=== PATIENT | male | born 1945 | race Hispanic/Latino ===

== ENCOUNTER 2018-11-27 07:59 | Emergency (ER) | payer MEDICARE ==
[~2018-11-27] VITALS: Ht 172.7 cm; Wt 93.6 kg
[2018-11-27] MEDS ORDERED: CLONIDINE HCL0.1 MG PO (08:35)
[2018-11-27] MEDS ORDERED: CRESTOR10 MG (08:35)
[2018-11-27] MEDS ORDERED: NIFEDIPINE10 MG PO (08:35)
[2018-11-27] MEDS ORDERED: LOSARTAN-HCTZ1 EAC1 (08:35)
[2018-11-27] MEDS ORDERED: NIFEDIPINE ER30 M1 (08:35)
[2018-11-27] MEDS ORDERED: GLIMEPIRIDE2 MG PO (08:35)
[2018-11-27] MEDS ORDERED: SODIUM CHLORIDE 0.9% 1000ML 1,000 ML ONE (08:45)
[2018-11-27] MEDS ORDERED: SODIUM CHLORIDE 0.9% 1000ML 1,000 ML IV STA (09:09)
--- NOTE | 2018-11-27 09:34 | Diagnostic Imaging Report ---
EXAM: CT Abdomen and Pelvis without contrast. INDICATION: Right lower quadrant pain. COMPARISON: None. TECHNIQUE: Abdomen and pelvis were scanned utilizing a multidetector helical scanner from the lung base to the pubic symphysis without administration of IV contrast. Coronal and sagittal reformations were obtained. Lack of IV contrast limits evaluation for visceral and vascular structures. COMPLICATIONS: None RADIATION DOSE: Total DLP: 824.3 mGy*cm Dose modulation, iterative reconstruction, and/or weight based adjustment of the mA/kV was utilized to reduce the radiation dose to as low as reasonably achievable. FINDINGS: LINES and TUBES: None. LOWER THORAX: There is calcification of the coronary arteries, consistent with atherosclerotic disease. Patchy dependent atelectasis. HEPATOBILIARY: No evidence of focal mass. No biliary ductal dilation. Calcified hepatic granuloma. GALLBLADDER: Cholelithiasis without CT evidence of cholecystitis. SPLEEN: No splenomegaly. PANCREAS: No focal masses or ductal dilatation. ADRENALS: No adrenal nodules KIDNEYS/URETERS: Mild right pelviectasis without alfonso hydronephrosis. Mild right perinephric stranding. Bilateral simple renal cysts. GI TRACT: No evidence of wall thickening or distension. Appendix is normal. PELVIC ORGANS/BLADDER: There is a 2 mm stone within the right posterior bladder near the UVJ. There is a 5 mm calcification in the anterior bladder. Prostate is enlarged, measuring up to 5.1 cm. LYMPH NODES: No lymphadenopathy. VESSELS: There are scattered atherosclerotic calcifications in the aorta and branch vessels. PERITONEUM / RETROPERITONEUM: No free air or fluid. BONES AND SOFT TISSUES: No acute osseous abnormality. No suspicious lytic or blastic lesions. Degenerative changes of the lumbar spine. CONCLUSION: Mild right perinephric stranding with 2 mm right bladder stone, consistent with recent passage from the right distal ureter. Normal appendix. Signed by: Dr. Lisa Bowser MD on 11/27/2018 9:31 AM
--- NOTE | 2018-11-27 09:59 | NUR ---
Pt given a urinal and strainer to be used at home for kidney stones. Pt verbalized understanding of items and will take stone to doctor for evaluation if he obtains one.
[2018-11-27] MEDS ORDERED: FLOMAX0.4 MG PO (10:02)
[2018-11-27] MEDS ORDERED: CEPHALEXIN500 MG PO (10:03)
[2018-11-27] MEDS ORDERED: ONDANSETRON ODT8 MG PO (10:04)
--- NOTE | 2018-11-27 10:05 | NUR ---
Pt BP is down and pt will go home and take his BP medication as he did not take them this morning before coming here.
[2018-11-27 10:07] VITALS: BP 175/97
== END 2018-11-27 10:20 | disposition home or self-care (01) ==
LOC: FSED 07:59
DX: R10.31 Right lower quadrant pain (principal); R11.2 Nausea with vomiting, unspecified; R31.9 Hematuria, unspecified; N20.0 Calculus of kidney; N20.1 Calculus of ureter; N13.30 Unspecified hydronephrosis; N28.9 Disorder of kidney and ureter, unspecified; I10 Essential (primary) hypertension; E11.9 Type 2 diabetes mellitus without complications; E78.00 Pure hypercholesterolemia, unspecified
CPT/HCPCS: 74176; 80053; 81003; 82553; 84484; 85025; 99284; J7030

== ENCOUNTER 2019-11-02 19:45 | Emergency (ER) | payer MEDICARE ==
[~2019-11-02] VITALS: Ht 172.7 cm; Wt 96.2 kg
[~2019-11-02 19:45] MED LIST: CEPHALEXIN500 MG PO; CLONIDINE HCL0.1 MG PO; CRESTOR10 MG; FLOMAX0.4 MG PO; GLIMEPIRIDE2 MG PO; LOSARTAN-HCTZ1 EAC1; NIFEDIPINE ER30 M1; NIFEDIPINE10 MG PO; ONDANSETRON ODT8 MG PO
--- OUTSIDE RECORDS SUMMARY | 2019-11-02 19:48 | XMS REPORT ---
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 Allergies, Adverse Reactions, Alerts This patient has no known allergies or adverse reactions. Medications Ordered Medication Name Filled Medication Name Start Date Stop Da te Current Medication? Ordering Clinician Indication Dosage Frequency Signature (SIG) Comments Components Cephalexin 500 Mg Capsule Cephalexin 500 Mg Capsule 2018-11-27 00:00: 00 Yes Cyndy Resendez Md 500 Three Times A Day for For Uri ne Infection Ondansetron (Ondansetron Odt) 8 Mg Tab.rapdis Ondanset shiraz (Ondansetron Odt) 8 Mg Tab.rapdis 2018-11-27 00:00:00 Yes Cyndy Resendez Md 1 Every 6 Hours as needed for Nausea Tamsulosin Hcl (Flomax*) 0.4 Mg Cap Tamsulosin Hcl (Flomax*) 0.4 Mg Cap 2018-11-27 00:00:00 Yes Cyndy Resendez Md 1 Be dtime Clonidine Hcl 0.1 Mg Tablet Clonidine Hcl 0.1 Mg Tablet Yes 1 Twice A Day Glimepiride 2 Mg Tablet Glimepiride 2 Mg Tablet Yes 1 Daily Losartan/Hydrochlorothiazide (Losartan-Hctz 100-25 Mg Tab) 1 Each Tablet Losartan/Hydrochlorothiazide (Losartan-Hctz 100-25 Mg Tab) 1 Each Tablet Yes Daily Nifedipine 10 Mg Cap Nifedipine 10 Mg Cap Yes 60 Daily Nifedipine (Nifedipine Er) 30 Mg Tab.er.24 Nifedipine (Nifedipine Er) 30 Mg Tab.er.24 Yes Rosuvastatin Calcium (Crestor) 10 Mg Tab Rosuvastatin Calcium (Crestor) 10 Mg Tab Yes 40 Daily Encounters Start Date/Time End Date/Time En[email or web address] Encounter ID 2018-11-27 07:59:00 2018-11-27 10:[facility]:[address] [facility] CYNDY RESENDEZ [facility] [id number] Results Test Description Test Time Test Comments Text Results Atomic Results Result Comments CT ABD/PEL WO CONTRAST-HOPD 2018-11-27 09:15:00 [place] [address] Patient Name: MARTITA CARLSON MR #: [id number] : 1945 Age/Sex: 73/M Req #: [id number] Adm Physician: Ordered by: CYNDY RESENDEZ MD Report #: [id number] Location: [facility] Room/Bed: Procedure: [id number] HOPD/CT ABD/PEL WO CONTRAST-HOPD Exam Date: 11/27/18 Exam Time: 0855 REPORT STATUS: Signed EXAM: CT Abdomen and Pelvis without contrast. INDICATION: Right lower quadrant pain. COMPARISON: None. TECHNIQUE: Abdomen and pelvis were scanned utilizing a multidetector helical scanner from the lung base to the pubic symphysis without administration of IV contrast. Coronal and sagittal reformations were obtained. Lack of IV contrast limits evaluation for visceral and vascular structures. COMPLICATIONS: None RADIATION DOSE: Total DLP: 824.3 mGy*cm Dose modulation, iterative reconstruction, and/or weight based adjustment of the mA/kV was utilized to reduce the radiation dose to as low as reasonably achievable. FINDINGS: LINES and TUBES: None. LOWER THORAX: There is calcification of the coronary arteries, consistent with atherosclerotic disease. Patchy dependent atelectasis. HEPATOBILIARY: No evidence of focal mass. No biliary ductal dilation. Calcified hepatic granuloma. GALLBLADDER: Cholelithiasis without CT evidence of cholecystitis. SPLEEN: No splenomegaly. PANCREAS: No focal masses or ductal dilatation. ADRENALS: No adrenal nodules KIDNEYS/URETERS: Mild right pelviectasis without alfonso hydronephrosis. Mild right perinephric stranding. Bilateral simple renal cysts. GI TRACT: No evidence of wall thickening or distension. Appendix is normal. PELVIC ORGANS/BLADDER: There is a 2 mm stone within the right pos terior bladder near the UVJ. There is a 5 mm calcification in the anterior bladder. Prostate is enlarged, measuring up to 5.1 cm. LYMPH NODES: No lymphadenopathy. VESSELS: There are scattered atherosclerotic calcifications in the aorta and branch vessels. PERITONEUM / RETROPERITONEUM: No free air or fluid. BONES AND SOFT TISSUES: No acute osseous abnormality. No suspicious lytic or blastic lesions. Degenerative changes of the lumbar spine. CONCLUSION: Mild right perinephric stranding with 2 mm right bladder stone, consistent with recent passage from the right distal ureter. Normal appendix. Signed by: Dr. Nilesh Puckett MD on 11/27/2018 9:31 AM Dictated By: NILESH PUCKETT MD 0 Transcribed By: KERRI on 11/27/18930 COPY TO: CYNDY RESENDEZ MD
--- NOTE | 2019-11-02 20:31 | NUR ---
DAUGHTER SITTING AT BEDSIDE . PT SPEAKS SOME LAO BUT DAUGHTER TRANSLATE TO MAKE SURE HE UNDERSTANDS WHAT IS GOING ON. PT IS CALM WITH DAUGHTER AT BEDSIDE. BOTH WEARING MASKS
[2019-11-02 21:12] VITALS: BP 142/75
== END 2019-11-02 21:12 | disposition home or self-care (01) ==
LOC: FSED 19:45
DX: F32.1 Major depressive disorder, single episode, moderate (principal); F41.9 Anxiety disorder, unspecified; E11.9 Type 2 diabetes mellitus without complications; I10 Essential (primary) hypertension
CPT/HCPCS: 80053; 81003; 82553; 84484; 85025; 93005; 99283

== ENCOUNTER 2021-06-25 00:42 | Emergency (ER) | payer MEDICARE ==
[~2021-06-25] VITALS: Ht 160 cm; Wt 88.0 kg
[2021-06-25] MEDS ORDERED: ASPIRIN 325 MG TAB PO ONE (01:00)
[2021-06-25] MEDS ORDERED: FAMOTIDINE 20 MG/2 ML VIAL IV STA (01:03)
[2021-06-25] MEDS ORDERED: METHYLPREDNISOLONE SOD SUCC 125 MG/2ML VIAL IV ONE (01:15)
[2021-06-25] MEDS ORDERED: DIPHENHYDRAMINE HCL INJ 50 MG/ML VIAL IV ONE (01:15)
[2021-06-25] MEDS ORDERED: EPINEPHRINE HCL 1:1000 1ML 1 MG/ML AMP INJ ONE (01:15)
[2021-06-25] MEDS ORDERED: EPINEPHRINE HCL 1:1000 1ML 1 MG/ML AMP ONE (01:20)
[2021-06-25] MEDS ORDERED: SODIUM CHLORIDE 0.9% 50ML 50 ML ONE (01:21)
[2021-06-25] MEDS ORDERED: DIPHENHYDRAMINE HCL INJ 50 MG/ML VIAL ONE (01:21)
[2021-06-25] MEDS ORDERED: FAMOTIDINE 20 MG/2 ML VIAL IV ONE (01:21)
[2021-06-25] MEDS ORDERED: METHYLPREDNISOLONE SOD SUCC 125 MG/2ML VIAL ONE (01:21)
[2021-06-25] MEDS ORDERED: METOPROLOL SUCC50 MG PO (02:14)
[2021-06-25] MEDS ORDERED: HYDRALAZINE HC100 MG PO (02:14)
[2021-06-25 03:01] VITALS: BP 148/74
[2021-06-25] MEDS ORDERED: PREDNISONE20 MG PO (08:38)
== END 2021-06-25 03:01 | disposition home or self-care (01) ==
LOC: FSED 00:55
DX: T78.3XXA Angioneurotic edema, initial encounter (principal); I10 Essential (primary) hypertension; E11.9 Type 2 diabetes mellitus without complications; Z79.4 Long term (current) use of insulin
CPT/HCPCS: 93005; 96372; 96374; 96375; 96376; 99283; J0171; J1200; J2930

== ENCOUNTER 2021-06-25 07:57 | Emergency (ER) | payer MEDICARE ==
[~2021-06-25] VITALS: Ht 175.3 cm; Wt 88.0 kg
[~2021-06-25 07:57] MED LIST changes: +HYDRALAZINE HC100 MG PO; +METOPROLOL SUCC50 MG PO
[2021-06-25] MEDS ORDERED: PREDNISONE20 MG PO (08:38)
== END 2021-06-25 08:49 | disposition home or self-care (01) ==
LOC: FSED 08:35
DX: T78.3XXA Angioneurotic edema, initial encounter (principal); I10 Essential (primary) hypertension; E11.9 Type 2 diabetes mellitus without complications
CPT/HCPCS: 99282

== ENCOUNTER 2021-06-29 16:16 | Inpatient (IN) | payer MEDICARE ==
[~2021-06-29] VITALS: Ht 167.6 cm; Wt 93.5 kg
[~2021-06-29 16:16] MED LIST changes: +PREDNISONE20 MG PO
[2021-06-29] MEDS: SODIUM CHLORIDE 0.9% 1000ML 1,000 ML IV SCH ×4 (17:45→21:04)
[2021-06-29] MEDS ORDERED: IBUPROFEN 600 MG TAB PO STA (17:56)
[2021-06-29] MEDS ORDERED: ONDANSETRON HCL INJ 2MG/ML 2ML 2 MG/ML VIAL IV STA (17:56)
[2021-06-29] MEDS ORDERED: ONDANSETRON HCL INJ 2MG/ML 2ML 2 MG/ML VIAL ONE (17:58)
[2021-06-29] MEDS ORDERED: SODIUM CHLORIDE 0.9% 1000ML 1,000 ML ONE ×2 (17:59→20:58)
[2021-06-29] MEDS ORDERED: IBUPROFEN 600 MG TAB ONE (17:59)
[2021-06-29] MEDS ORDERED: ACETAMINOPHEN 325 MG TAB ONE (17:59)
[2021-06-29] MEDS ORDERED: ACETAMINOPHEN 325 MG TAB PO ONE (18:00)
[2021-06-29] MEDS ORDERED: SODIUM CHLORIDE 0.9% 50ML 50 ML ONE (18:58)
[2021-06-29] MEDS ORDERED: IOPAMIDOL 370 MG/ML 200 ML INFUS..BTL INJ ONE (18:59)
[2021-06-29] MEDS ORDERED: Vancomycin IV 1 GM in SODIUM CHLORIDE 0.9% 250ML 250 ML IV ONE (19:00)
[2021-06-29] MEDS ORDERED: LEVOFLOXACIN 750MG/D5W 150ML 150 ML IV SCH (19:00)
[2021-06-29] MEDS ORDERED: SODIUM CHLORIDE 0.9% 100 ML ONE (19:26)
[2021-06-29] MEDS ORDERED: CEFEPIME HCL 1 GM VIAL ONE (19:27)
[2021-06-29] MEDS ORDERED: HYDROCORTISONE SOD SUCCINATE 100 MG VIAL IV ONE (19:45)
[2021-06-29] MEDS ORDERED: METHYLPREDNISOLONE SOD SUCC 125 MG/2ML VIAL IV ONE ×2 (20:15→20:30)
[2021-06-29] MEDS: CEFEPIME 2 GM in SODIUM CHLORIDE 0.9% 100 ML IV SCH (20:26)
[2021-06-29] MEDS ORDERED: DEXTROSE 50% SYRINGE 50 ML IV STA (20:52)
[2021-06-29] MEDS ORDERED: LEVOFLOXACIN 750MG/D5W 150ML 150 ML IV ONE (20:56)
[2021-06-29] MEDS ORDERED: Vancomycin IV 1 GM VIAL ONE (20:56)
[2021-06-29] MEDS ORDERED: SODIUM CHLORIDE 0.9% 250ML 250 ML ONE (20:56)
[2021-06-29] MEDS ORDERED: DEXTROSE 50% SYRINGE 50 ML IV ONE (21:04)
[2021-06-29] MEDS ORDERED: SODIUM CHLORIDE 0.9% 1000ML 1,000 ML IV STA (21:38)
[2021-06-29] MEDS ORDERED: D5NS/KCL 20MEQ 1,000 ML IV SCH (21:45)
[2021-06-29] MEDS ORDERED: ONDANSETRON HCL INJ 2MG/ML 2ML 2 MG/ML VIAL IV PRN (21:45)
[2021-06-29] MEDS ORDERED: DEXTROSE 5% 250ML 250 ML IV ONE (22:07)
[2021-06-30] VITALS (8 sets, daily range): BP systolic 127–184; BP diastolic 77–103
[2021-06-30] MEDS ORDERED: D5.45%NS/KCL 20MEQ 1,000 ML IV ONE (01:00)
[2021-06-30] MEDS ORDERED: [UNRECOGNIZED DRUG - OTHER] IV ONE (01:14)
[2021-06-30] MEDS: CEFEPIME 2 GM in SODIUM CHLORIDE 0.9% 100 ML IV SCH ×2 (04:00→12:12)
[2021-06-30 05:16] LABS: BASOPHILS # (AUTO) 0.1 (0.0-0.1); BASOPHILS % 0.3 % (0.0-1.0); HEMATOCRIT 33.3 % (38.2-49.6); HEMOGLOBIN 10.7 g/dL (14.0-18.0); LYMPHOCYTES # (AUTO) 0.5 (1.0-3.2); LYMPHOCYTES % 2.7 % (18.0-39.1); MEAN CORPUSCULAR HEMOGLOBIN 28.5 pg (28-32); MEAN CORPUSCULAR HGB CONC 32.1 g/dL (31-35); MEAN CORPUSCULAR VOLUME 88.8 fL (81-99); MONOCYTES # (AUTO) 0.2 (0.2-0.8); MONOCYTES % 1.2 % (4.4-11.3); NEUTROPHILS # (AUTO) 16.8 (2.1-6.9); PLATELET COUNT 168 x10e3/uL (140-360); RED BLOOD COUNT 3.75 x10e6/uL (4.3-5.7); RED CELL DISTRIBUTION WIDTH 13.8 % (11.7-14.4)
[2021-06-30] MEDS ORDERED: GLIMEPIRIDE1 MG PO (05:26)
[2021-06-30] MEDS ORDERED: ESIDRIX25 MG PO (05:26)
[2021-06-30] MEDS ORDERED: HYDRALAZINE HC100 MG PO (05:26)
[2021-06-30] MEDS ORDERED: METOPROLOL SUC100 MG PO (05:26)
[2021-06-30] MEDS ORDERED: ROSUVASTATIN CA40 MG PO (05:26)
[2021-06-30 05:56] LABS: ALBUMIN 2.4 g/dL (3.5-5.0); ALBUMIN/GLOBULIN RATIO 0.8 (0.8-2.0); ANION GAP 11.8 mmol/L (8-16); CALCIUM 7.7 mg/dL (8.4-10.2); CREATININE, SERUM 1.43 mg/dL (0.72-1.25); POTASSIUM 3.8 mmol/L (3.5-5.1)
[2021-06-30 06:36] LABS: CREATINE KINASE MB 1.9 ng/mL (0-5.0)
[2021-06-30] MEDS ORDERED: DOCUSATE SODIUM 100 MG CAP PO PRN (07:30)
[2021-06-30] MEDS: BENZONATATE 100 MG CAP PO SCH ×3 (08:23→20:35)
[2021-06-30] MEDS: CHOLECALCIFEROL 1,000 UNIT TAB PO SCH (08:23)
[2021-06-30] MEDS: LORATADINE 10 MG TAB PO SCH (08:23)
[2021-06-30] MEDS ORDERED: METOPROLOL SUCCINATE 50 MG TAB XL PO SCH (09:00)
[2021-06-30] MEDS ORDERED: ASCORBIC ACID 500 MG TAB PO SCH (09:00)
[2021-06-30] MEDS ORDERED: ZINC SULFATE 50 MG CAP PO SCH (09:00)
[2021-06-30] MEDS ORDERED: DEXTROSE 50% SYRINGE 50 ML IV PRN (09:30)
[2021-06-30] MEDS: ACETAMINOPHEN 325 MG TAB PO PRN ×3 (10:25→21:07)
[2021-06-30] MEDS: ONDANSETRON HCL 4 MG ORAL DISINTEGRATING TAB PO PRN ×2 (10:37→20:36)
[2021-06-30 10:45] LABS: CHOL/HDL RATIO 2.3 (3.9-4.7)
[2021-06-30] MEDS: LABETALOL HCL 5 MG/ML 20ML VIAL IV PRN ×4 (11:49→18:00)
[2021-06-30] MEDS ORDERED: DIPHENHYDRAMINE HCL 25 MG CAP PO PRN (12:00)
[2021-06-30] MEDS: INSULIN REGULAR, HUMAN 100 UNIT/1 ML SQ SCH ×3 (12:12→21:00)
[2021-06-30] MEDS ORDERED: DIPHENHYDRAMINE HCL INJ 50 MG/ML VIAL IV ONE (13:30)
[2021-06-30] MEDS: FAMOTIDINE 20 MG/2 ML VIAL IV SCH ×2 (13:30→16:00)
[2021-06-30] MEDS ORDERED: METHYLPREDNISOLONE SOD SUCC 40 MG/ML VIAL 1ML IV ONE (13:30)
[2021-06-30 15:26] LABS: CREATINE KINASE MB 5.8 ng/mL (0-5.0)
[2021-06-30] MEDS: ENOXAPARIN SOD INJ 40 MG/0.4 ML SYR SC SCH (16:00)
[2021-06-30] MEDS: TRIAMCINOLONE 0.1% OINTMENT 15 GM TUBE TP SCH (16:00)
[2021-06-30] MEDS ORDERED: METHYLPREDNISOLONE SOD SUCC 40 MG/ML VIAL 1ML IV NR (18:00)
[2021-06-30] MEDS: HYDRALAZINE HCL 100 MG TABLET PO SCH (18:00)
[2021-06-30] MEDS: MELATONIN 3 MG TAB PO PRN (20:35)
[2021-06-30] MEDS: HYDROCHLOROTHIAZIDE 25 MG TAB PO SCH (20:36)
[2021-06-30] MEDS ORDERED: METHYLPREDNISOLONE SOD SUCC 40 MG/ML VIAL 1ML IV SCH (21:00)
[2021-06-30] MEDS: METHYLPREDNISOLONE SOD SUCC 40 MG/ML VIAL 1ML IV SCH (21:07)
[2021-06-30] MEDS: METOPROLOL SUCCINATE 50 MG TAB XL PO SCH (21:07)
[2021-07-01] VITALS (8 sets, daily range): BP systolic 132–164; BP diastolic 71–91
[2021-07-01] MEDS: METHYLPREDNISOLONE SOD SUCC 40 MG/ML VIAL 1ML IV SCH ×3 (05:18→22:35)
[2021-07-01 06:45] LABS: ANION GAP 15.8 mmol/L (8-16); CREATININE, SERUM 1.83 mg/dL (0.72-1.25); POTASSIUM 3.8 mmol/L (3.5-5.1)
[2021-07-01 07:57] LABS: BASOPHILS % 0.4 % (0.0-1.0); HEMOGLOBIN 13.8 g/dL (14.0-18.0); LYMPHOCYTES # (AUTO) 0.5 (1.0-3.2); LYMPHOCYTES % 11.8 % (18.0-39.1); MEAN CORPUSCULAR HEMOGLOBIN 28.2 pg (28-32); MEAN CORPUSCULAR HGB CONC 31.9 g/dL (31-35); MEAN CORPUSCULAR VOLUME 88.3 fL (81-99); MONOCYTES # (AUTO) 0.2 (0.2-0.8); MONOCYTES % 4.7 % (4.4-11.3); NEUTROPHILS # (AUTO) 3.7 (2.1-6.9); NEUTROPHILS % 82.7 % (38.7-80.0); PLATELET COUNT 224 x10e3/uL (140-360); RED BLOOD COUNT 4.89 x10e6/uL (4.3-5.7); RED CELL DISTRIBUTION WIDTH 14.1 % (11.7-14.4)
[2021-07-01] MEDS: INSULIN REGULAR, HUMAN 100 UNIT/1 ML SQ SCH ×4 (08:00→21:45)
[2021-07-01 08:02] LABS: HEMATOCRIT 43.2 % (38.2-49.6)
[2021-07-01] MEDS: BENZONATATE 100 MG CAP PO SCH ×3 (09:16→21:30)
[2021-07-01] MEDS: CHOLECALCIFEROL 1,000 UNIT TAB PO SCH (09:16)
[2021-07-01] MEDS: LORATADINE 10 MG TAB PO SCH (09:16)
[2021-07-01] MEDS: FAMOTIDINE 20 MG/2 ML VIAL IV SCH ×2 (09:16→18:15)
[2021-07-01] MEDS: HYDROCHLOROTHIAZIDE 25 MG TAB PO SCH (09:16)
[2021-07-01] MEDS: TRIAMCINOLONE 0.1% OINTMENT 15 GM TUBE TP SCH ×2 (09:16→18:15)
[2021-07-01] MEDS: HYDRALAZINE HCL 100 MG TABLET PO SCH ×2 (09:16→18:15)
[2021-07-01] MEDS: ENOXAPARIN SOD INJ 40 MG/0.4 ML SYR SC SCH (18:15)
[2021-07-01] MEDS: METOPROLOL SUCCINATE 50 MG TAB XL PO SCH (21:30)
[2021-07-01] MEDS: ACETAMINOPHEN 325 MG TAB PO PRN (21:45)
[2021-07-01] MEDS ORDERED: SODIUM CHLORIDE 0.9% 250ML 250 ML ONE (22:11)
[2021-07-02] VITALS: BP 152/81
[2021-07-02 04:00] VITALS: BP 149/86
[2021-07-02] MEDS ORDERED: SODIUM BICARBONATE 8.4% IV SCH (04:45)
[2021-07-02] MEDS ORDERED: SODIUM CHLORIDE 0.45% IV SCH (04:45)
[2021-07-02 05:59] LABS: BASOPHILS % 0.3 % (0.0-1.0); HEMATOCRIT 35.1 % (38.2-49.6); HEMOGLOBIN 11.1 g/dL (14.0-18.0); LYMPHOCYTES # (AUTO) 0.5 (1.0-3.2); LYMPHOCYTES % 7.7 % (18.0-39.1); MEAN CORPUSCULAR HEMOGLOBIN 27.9 pg (28-32); MEAN CORPUSCULAR HGB CONC 31.6 g/dL (31-35); MEAN CORPUSCULAR VOLUME 88.2 fL (81-99); MONOCYTES # (AUTO) 0.4 (0.2-0.8); MONOCYTES % 6.6 % (4.4-11.3); NEUTROPHILS # (AUTO) 5.5 (2.1-6.9); NEUTROPHILS % 84.8 % (38.7-80.0); PLATELET COUNT 187 x10e3/uL (140-360); RED BLOOD COUNT 3.98 x10e6/uL (4.3-5.7)
[2021-07-02] MEDS: METHYLPREDNISOLONE SOD SUCC 40 MG/ML VIAL 1ML IV SCH (06:28)
[2021-07-02 06:29] LABS: ANION GAP 14.9 mmol/L (8-16); CALCIUM 8.3 mg/dL (8.4-10.2); CREATININE, SERUM 1.98 mg/dL (0.72-1.25); POTASSIUM 3.9 mmol/L (3.5-5.1)
[2021-07-02] MEDS: SODIUM BICARBONATE 8.4% 50 ML in SODIUM CHLORIDE 0.45% 1,000 ML IV SCH ×2 (06:29→19:38)
[2021-07-02] MEDS: INSULIN REGULAR, HUMAN 100 UNIT/1 ML SQ SCH ×4 (07:30→20:13)
[2021-07-02 08:00] VITALS: BP 149/86
[2021-07-02] MEDS: HYDRALAZINE HCL 100 MG TABLET PO SCH ×2 (08:57→17:17)
[2021-07-02] MEDS: FAMOTIDINE 20 MG/2 ML VIAL IV SCH ×2 (08:57→17:16)
[2021-07-02] MEDS: TRIAMCINOLONE 0.1% OINTMENT 15 GM TUBE TP SCH ×2 (08:57→17:17)
[2021-07-02] MEDS: LORATADINE 10 MG TAB PO SCH (08:57)
[2021-07-02] MEDS: HYDROCHLOROTHIAZIDE 25 MG TAB PO SCH (08:57)
[2021-07-02] MEDS: CHOLECALCIFEROL 1,000 UNIT TAB PO SCH (08:57)
[2021-07-02] MEDS: BENZONATATE 100 MG CAP PO SCH ×3 (08:57→21:30)
[2021-07-02] MEDS: CIPROFLOXACIN 400 MG/D5W 200ML 200 ML IV SCH (15:30)
[2021-07-02] MEDS: ENOXAPARIN SOD INJ 40 MG/0.4 ML SYR SC SCH (16:37)
[2021-07-02 20:00] VITALS: BP_DIAS 121
[2021-07-02 21:00] VITALS: BP 149/121
[2021-07-02] MEDS: MELATONIN 3 MG TAB PO PRN (21:30)
[2021-07-02] MEDS: METOPROLOL SUCCINATE 50 MG TAB XL PO SCH (21:30)
[2021-07-02] MEDS: ACETAMINOPHEN 325 MG TAB PO PRN (21:30)
[2021-07-03] MEDS: CIPROFLOXACIN 400 MG/D5W 200ML 200 ML IV SCH ×2 (01:51→18:07)
[2021-07-03 04:00] VITALS: BP 150/82
[2021-07-03 07:12] LABS: BASOPHILS % 0.2 % (0.0-1.0); EOSINOPHILS % 0.1 % (0.0-6.0); HEMATOCRIT 32.3 % (38.2-49.6); HEMOGLOBIN 10.2 g/dL (14.0-18.0); LYMPHOCYTES # (AUTO) 0.9 (1.0-3.2); LYMPHOCYTES % 11.1 % (18.0-39.1); MEAN CORPUSCULAR HEMOGLOBIN 28.3 pg (28-32); MEAN CORPUSCULAR HGB CONC 31.6 g/dL (31-35); MEAN CORPUSCULAR VOLUME 89.7 fL (81-99); MONOCYTES # (AUTO) 0.7 (0.2-0.8); MONOCYTES % 8.2 % (4.4-11.3); NEUTROPHILS # (AUTO) 6.6 (2.1-6.9); NEUTROPHILS % 79.8 % (38.7-80.0); PLATELET COUNT 157 x10e3/uL (140-360); RED CELL DISTRIBUTION WIDTH 13.8 % (11.7-14.4)
[2021-07-03] MEDS: INSULIN REGULAR, HUMAN 100 UNIT/1 ML SQ SCH ×4 (07:30→20:07)
[2021-07-03 07:45] LABS: ANION GAP 12.3 mmol/L (8-16); CREATININE, SERUM 1.94 mg/dL (0.72-1.25); POTASSIUM 3.3 mmol/L (3.5-5.1)
[2021-07-03] MEDS ORDERED: POTASSIUM CHLORIDE 20 MEQ TAB CR PO ONE (08:35)
[2021-07-03] MEDS ORDERED: FUROSEMIDE INJ 10 MG/ML 2 ML VIAL IV ONE (08:45)
[2021-07-03 09:08] VITALS: BP_SYST 137; BP_SYST 150; BP_DIAS 75; BP_DIAS 82
[2021-07-03] MEDS: HYDROCHLOROTHIAZIDE 25 MG TAB PO SCH (09:59)
[2021-07-03] MEDS: FAMOTIDINE 20 MG/2 ML VIAL IV SCH ×2 (09:59→18:09)
[2021-07-03] MEDS: LORATADINE 10 MG TAB PO SCH (09:59)
[2021-07-03] MEDS: CHOLECALCIFEROL 1,000 UNIT TAB PO SCH (10:00)
[2021-07-03] MEDS: BENZONATATE 100 MG CAP PO SCH ×3 (10:00→20:46)
[2021-07-03] MEDS: HYDRALAZINE HCL 100 MG TABLET PO SCH ×2 (10:00→18:07)
[2021-07-03] MEDS: TRIAMCINOLONE 0.1% OINTMENT 15 GM TUBE TP SCH ×2 (10:08→16:07)
[2021-07-03] MEDS: ARTIFICIAL TEARS (OPTH) 15 ML BTL OU SCH ×3 (12:35→20:46)
[2021-07-03 12:38] VITALS: BP 122/76
[2021-07-03 16:45] VITALS: BP 124/77
[2021-07-03] MEDS: ENOXAPARIN SOD INJ 40 MG/0.4 ML SYR SC SCH (18:07)
[2021-07-03 20:00] VITALS: BP 135/87
[2021-07-03] MEDS: MELATONIN 3 MG TAB PO PRN (20:47)
[2021-07-03] MEDS: METOPROLOL SUCCINATE 50 MG TAB XL PO SCH (20:47)
[2021-07-03 21:00] VITALS: BP 135/87
[2021-07-04] VITALS: BP 120/68
[2021-07-04] MEDS: CIPROFLOXACIN 400 MG/D5W 200ML 200 ML IV SCH (01:29)
[2021-07-04 04:00] VITALS: BP 136/78
[2021-07-04] MEDS ORDERED: LORATADINE10 MG PO (06:15)
[2021-07-04] MEDS ORDERED: Artificial Tears (Opth) OU (06:15)
[2021-07-04] MEDS ORDERED: CIPRO500 MG PO (06:15)
[2021-07-04] MEDS ORDERED: TESSALON PERLE100 MG PO (06:15)
[2021-07-04] MEDS: INSULIN REGULAR, HUMAN 100 UNIT/1 ML SQ SCH ×2 (07:30→11:30)
[2021-07-04] MEDS: BENZONATATE 100 MG CAP PO SCH (08:32)
[2021-07-04] MEDS: HYDRALAZINE HCL 100 MG TABLET PO SCH (08:32)
[2021-07-04] MEDS: CHOLECALCIFEROL 1,000 UNIT TAB PO SCH (08:32)
[2021-07-04] MEDS: LORATADINE 10 MG TAB PO SCH (08:32)
[2021-07-04] MEDS: HYDROCHLOROTHIAZIDE 25 MG TAB PO SCH (08:32)
[2021-07-04] MEDS: FAMOTIDINE 20 MG/2 ML VIAL IV SCH (08:33)
[2021-07-04] MEDS: ARTIFICIAL TEARS (OPTH) 15 ML BTL OU SCH (08:38)
[2021-07-04] MEDS: TRIAMCINOLONE 0.1% OINTMENT 15 GM TUBE TP SCH (08:38)
[2021-07-04 09:21] VITALS: BP 148/86
[2021-07-04 09:27] VITALS: BP 148/86
[2021-07-04 09:41] LABS: ANION GAP 12.9 mmol/L (8-16); CALCIUM 9.1 mg/dL (8.4-10.2); CREATININE, SERUM 1.6 mg/dL (0.72-1.25); POTASSIUM 3.9 mmol/L (3.5-5.1)
[2021-07-04 12:06] VITALS: BP 123/77
== END 2021-07-04 14:48 | disposition home or self-care (01) | DRG 871 ==
LOC: FSED 16:42 → ERHOLD 21:42 → MED/SURG2 06-30 00:12 → IMCU 07-01 16:50
PROVIDERS: ADMIT Internal Medicine; ATTEND Internal Medicine
PROC: 8E0ZXY6 Isolation (ICD-10-PCS; principal; 2021-06-29)
DX: A41.51 Sepsis due to Escherichia coli [E. coli] (principal); U07.1 COVID-19; N39.0 Urinary tract infection, site not specified; Z16.12 Extended spectrum beta lactamase (ESBL) resistance; N17.9 Acute kidney failure, unspecified; T88.6XXA Anaphylactic reaction due to adverse effect of correct drug or medicament properly administered, initial encounter; I10 Essential (primary) hypertension; E11.649 Type 2 diabetes mellitus with hypoglycemia without coma; Z79.899 Other long term (current) drug therapy; L27.1 Localized skin eruption due to drugs and medicaments taken internally; T36.1X5A Adverse effect of cephalosporins and other beta-lactam antibiotics, initial encounter; B95.2 Enterococcus as the cause of diseases classified elsewhere; E66.9 Obesity, unspecified; Z68.33 Body mass index [BMI] 33.0-33.9, adult; Z71.3 Dietary counseling and surveillance; D35.01 Benign neoplasm of right adrenal gland; K80.80 Other cholelithiasis without obstruction
CPT/HCPCS: 36415; 70450; 71260; 76770; 80048; 80053; 80061; 82550; 82553; 82948; 83036; 83518; 83605; 84484; 85025; 87040; 87071; 87086; 87186; 87205; 87400; 93005; 99284; J0692; J1200; J1650; J1720; J1817; J1940; J2405; J2920; J2930; J3370; J7030; J7050; J7070; J7799; Q0162; Q9967; U0002

== ENCOUNTER 2022-12-18 03:09 | Emergency (ER) | payer MEDICARE ==
[~2022-12-18] VITALS: Ht 167.6 cm; Wt 93.4 kg
[~2022-12-18 03:09] MED LIST changes: +Artificial Tears (Opth) OU; +CIPRO500 MG PO; +ESIDRIX25 MG PO; +GLIMEPIRIDE1 MG PO; +LORATADINE10 MG PO; +METOPROLOL SUC100 MG PO; +ROSUVASTATIN CA40 MG PO; +TESSALON PERLE100 MG PO
[2022-12-18] MEDS ORDERED: DEXAMETHASONE SOD PHOS 10 MG/1 ML VIAL IV ONE (03:30)
[2022-12-18 03:44] LABS: BASOPHILS % 0.3 % (0.0-1.0); HEMATOCRIT 34.8 % (38.2-49.6); HEMOGLOBIN 11.1 g/dL (14.0-18.0); LYMPHOCYTES # (AUTO) 0.4 (1.0-3.2); MEAN CORPUSCULAR HEMOGLOBIN 28.3 pg (28-32); MEAN CORPUSCULAR HGB CONC 31.9 g/dL (31-35); MEAN CORPUSCULAR VOLUME 88.8 fL (81-99); MONOCYTES # (AUTO) 0.2 (0.2-0.8); MONOCYTES % 4.2 % (4.4-11.3); NEUTROPHILS # (AUTO) 3.2 (2.1-6.9); PLATELET COUNT 98 x10e3/uL (140-360); RED BLOOD COUNT 3.92 x10e6/uL (4.3-5.7); RED CELL DISTRIBUTION WIDTH 14.4 % (11.7-14.4)
[2022-12-18 03:53] LABS: ANION GAP 12.5 mmol/L (8-16); CALCIUM 8.1 mg/dL (8.4-10.2); CREATININE, SERUM 1.15 mg/dL (0.72-1.25); POTASSIUM 3.5 mmol/L (3.5-5.1)
[2022-12-18] MEDS ORDERED: IOPAMIDOL 370 MG/ML 100 ML INFUS..BTL INJ ONE (04:04)
[2022-12-18] MEDS ORDERED: PIPERACILLIN/TAZOBACTAM 3.375 GM VIAL ONE (04:44)
[2022-12-18 07:59] VITALS: BP 145/99; PULSE 60; RESP 18; O2SAT 99
== END 2022-12-18 08:05 | disposition other institution (70) ==
LOC: ER 03:15
DX: J39.0 Retropharyngeal and parapharyngeal abscess (principal); I10 Essential (primary) hypertension; E11.9 Type 2 diabetes mellitus without complications; Z20.822 Contact with and (suspected) exposure to COVID-19
CPT/HCPCS: 36415; 70491; 80048; 83518; 85025; 86308; 87070; 99284; J1100; J2543; Q9967; U0002